=== PATIENT | female | born 1965 | race Caucasian/White ===

== ENCOUNTER 2023-04-15 10:50 | Emergency (ER) | payer OTHER, SELFPAY ==
[2023-04-15] MEDS ORDERED: Cyclobenzaprine 10 MG TAB ONE (11:46)
[2023-04-15] MEDS ORDERED: Ketorolac Tromethamine 30 MG/ML VIAL ONE (11:46)
== END 2023-04-15 14:50 | disposition home or self-care (01) ==
LOC: CSHERS 10:50
DX: M76.61 Achilles tendinitis, right leg (principal)
CPT/HCPCS: J1885